=== PATIENT | female | born 1965 | race Caucasian/White ===

== ENCOUNTER 2018-08-09 12:00 | Emergency (ER) | payer MEDICAID, OTHER ==
[~2018-08-09] VITALS: Ht 165.1 cm; Wt 65.8 kg
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
--- NOTE | 2018-08-09 13:14 | NUR ---
[facility] AT BEDSIDE TO TAKE REPORT
--- NOTE | 2018-08-09 14:32 | NUR ---
Patient discharged to home in stable condition. Written and verbal after care instructions given. Patient verbalizes understanding of instruction. PROVIDED [facility] RESOURCES. REFUSED TO SIGN D/C PAPERS.
[2018-08-09 15:51] VITALS: BP 132/76
== END 2018-08-09 14:32 | disposition home or self-care (01) ==
LOC: ER 12:00
DX: S41.131A Puncture wound without foreign body of right upper arm, initial encounter (principal); W46.0XXA Contact with hypodermic needle, initial encounter; Y93.89 Activity, other specified; Y92.89 Other specified places as the place of occurrence of the external cause; Y99.8 Other external cause status
CPT/HCPCS: 36415; 80074; 87806; 99283; A4606